=== PATIENT | male | born 1975 | race Caucasian/White ===

== ENCOUNTER 2021-03-17 17:05 | Outpatient (CLI) | payer BC | END 2021-03-17 17:06 | disposition home or self-care (01) | LOC: COV 17:05 | PROVIDERS: ATTEND Family Medicine | DX: Z20.822 Contact with and (suspected) exposure to COVID-19 (principal) ==

== ENCOUNTER 2021-06-20 08:00 | Outpatient (CLI) | payer BC ==
--- NOTE | 2021-06-20 11:31 | XRAY Report ---
PROCEDURE: Foot 2 View RT INDICATIONS: FOREIGN BODY RIGHT FOOT TECHNIQUE: 2 views of the foot were acquired. COMPARISON: None. FINDINGS: Bones: No fractures or dislocations. No suspicious bony lesions. Soft tissues: No tibiotalar joint effusion. Achilles tendon appears normal. Linear foreign body at the posterior calcaneus soft tissues at the site of clinical concern measuring 0.4 cm. IMPRESSION: A small linear metallic foreign body within the posterior calcaneus soft tissues. Reviewed by: Micha Crouch MD on 06/20/2021 11:30 AM PDT Approved by: Micha Crouch MD on 06/20/2021 11:30 AM PDT Station ID: [id number]
== END 2021-06-20 23:59 | disposition home or self-care (01) ==
LOC: DI.S 08:00
PROVIDERS: ATTEND Physician Assistant Medical
DX: S99.821A Other specified injuries of right foot, initial encounter (principal); M79.5 Residual foreign body in soft tissue